=== PATIENT | male | born 1965 | race Caucasian/White ===

== ENCOUNTER 2018-01-25 15:18 | Emergency (ER) | payer MEDICARE ==
[~2018-01-25] VITALS: Ht 177.8 cm; Wt 74.8 kg
[2018-01-25] MEDS ORDERED: ALEVE220 MG PO (15:32)
[2018-01-25] MEDS ORDERED: AMOXICILLIN 50500 MG PO (15:43)
[2018-01-25 15:54] VITALS: BP 153/83
== END 2018-01-25 15:55 | disposition home or self-care (01) ==
LOC: M.ERS 15:18
DX: K04.7 Periapical abscess without sinus (principal); F17.210 Nicotine dependence, cigarettes, uncomplicated